=== PATIENT | female | born 1980 | race Caucasian/White ===

== ENCOUNTER 2022-03-26 12:51 | Emergency (ER) | payer BC ==
[2022-03-26] MEDS ORDERED: Sodium Chloride 0.9% 1,000 ML IV ONE (12:54)
[2022-03-26] MEDS ORDERED: methylPREDNISolone Sodium Succinate 125 MG/2 ML SDV IVPUSH ONE (12:55)
[2022-03-26] MEDS ORDERED: Famotidine 20 MG/2 ML SDV IVPUSH ONE (13:02)
[2022-03-26] MEDS ORDERED: diphenhydrAMINE 50 MG/ML SDV IVPUSH ONE (13:02)
[2022-03-26 14:17] LABS: BLOOD UREA NITROGEN,BUN 11 mg/dL (7.0-18.0); CARBON DIOXIDE,CO2 22.5 mmol/L (21.0-32.0); CHLORIDE,CL 107 mmol/L (98-107); ESTIMATED GFR 94 mL/min (>60); GLUCOSE RANDOM 88 mg/dL (74-106); POTASSIUM,K 4.1 mmol/L (3.5-5.1); SODIUM,NA 140 mmol/L (136-145)
== END 2022-03-26 16:01 | disposition home or self-care (01) ==
LOC: MW.ED 12:51
DX: T78.40XA Allergy, unspecified, initial encounter (principal); Z91.030 Bee allergy status
CPT/HCPCS: 36415; 80053; 80305; 80307; 81003; 82553; 84703; 85025; 93005; 96361; 96374; 96375; 99283; J1200; J2930; J3490; J7030; 99284